=== PATIENT | male | born 1965 | race Caucasian/White ===

== ENCOUNTER 2017-07-07 11:59 | Day surgery (SDC) | payer OTHER, BC, MEDICARE ==
[2017-07-07] MEDS ORDERED: PROPOFOL 100 ML (16:44)
[2017-07-07] MEDS ORDERED: GLYCOPYRROLATE 0.4 MG INJ (16:48)
[2017-07-08] MEDS ORDERED: FENTAnyl 50 MCG/ML VIAL (11:54)
[2017-07-08] MEDS ORDERED: CEFAZOLIN 1 GM INJ (12:23)
[2017-07-08] MEDS ORDERED: LIDOCAINE 100 MG SYRINGE (12:23)
[2017-07-08] MEDS ORDERED: PROPOFOL 20 ML (12:23)
== END 2017-07-08 14:15 | disposition other institution (70) ==
LOC: SDS 11:59
DX: Z43.1 Encounter for attention to gastrostomy (principal); E11.9 Type 2 diabetes mellitus without complications; E78.5 Hyperlipidemia, unspecified; Z79.4 Long term (current) use of insulin; E66.9 Obesity, unspecified; G71.0 Muscular dystrophy; G47.33 Obstructive sleep apnea (adult) (pediatric); J45.20 Mild intermittent asthma, uncomplicated
CPT/HCPCS: 43246; 94002